=== PATIENT | male | born 1945 | race African-American/Black ===

== ENCOUNTER 2024-09-29 03:43 | Emergency (ER) | payer MEDICARE, OTHER, SELFPAY ==
[2024-09-29 03:47] VITALS: BP 132/93; PULSE 78; RESP 18; TEMP 36.3; O2SAT 97
--- NOTE | 2024-09-29 04:09 | XR_ITS ---
Examination: CT abdomen and pelvis without contrast. Coronal 3-D reconstructions. Sagittal 2-D reconstructions. Date and time of exam:September 29, 2024 at 0425 hours INDICATIONS: Right flank pain hematuria since yesterday CTDI: vol (mGy): 7.40 DLP: (mGycm): 456 Technique: Axial images of the abdomen have been obtained, 3 mm slice thickness Intravenous contrast material has not been administered. Low dose protocols were performed. One or more of the following dose reduction techniques were used; automated exposure control, adjustment of the mA and/or KV according to patient size, use of iterative reconstruction technique. Findings: Trace pericardial effusion No focal liver or splenic lesions No gallstones No pancreatic mass Mild right hydronephrosis, wall thickening of the right ureter, no ureteral calculi, normal appendix Mild urinary bladder wall thickening No obstruction IMPRESSION: Findings most consistent with right urinary tract infection and cystitis
--- NOTE | 2024-09-29 04:10 | PD.EDRME ---
Rapid Medical Screening Exam RME Arrival date/time: 09/29/24 03:43 Chief Complaint: Abdominal Pain Time Seen by Provider: 09/29/24 03:46 Vital signs: Vital Signs Temperature 97.4 F 09/29/24 03:47 Pulse Rate 78 09/29/24 03:47 Respiratory Rate 18 09/29/24 03:47 Blood Pressure 132/93 H 09/29/24 03:47 Pulse Oximetry (%) 97 09/29/24 03:47 Oxygen Delivery Method Room Air 09/29/24 03:47 RME Narrative: Right flank pain, hematuria, nausea since yesterday.
[2024-09-29 04:36] VITALS: BMI 24.8
[2024-09-29] MEDS: SODIUM CHLORIDE 0.9% 1000 ML 1,000 ML 999 ML IV (04:53)
[2024-09-29] MEDS: KETOROLAC INJ 30 MG/ML VIAL IVP (04:53)
[2024-09-29] MEDS: ONDANSETRON INJ 2 MG/ML INJ 2 ML 4 MG IV (04:53)
[2024-09-29 05:09] LABS: Collection Type, Urine Clean Catch; Squamous Epithelial Cell,Urine 0 /hpf (0-5)
[2024-09-29 05:16] LABS: Basophils % (Auto) 0 % (0-2.5); Eosinophils # (Auto) 0.1 Thou/mm3 (0.0-0.5); Eosinophils % (Auto) 1 % (0-10); Hematocrit 35.6 % (41.0-53.0); Hemoglobin 11.4 g/dL (13.5-16.0); Immature Granulocytes % (Auto) 1 % (0-0); Immature Granulocytes Auto 0.03 Thou/mm3 (0.00-0.00); Lymphocytes # (Auto) 0.9 Thou/mm3 (1.0-4.8); Lymphocytes % (Auto) 17 % (10-50); Mean Corpuscular Hemoglobin 30.2 pg (25.0-35.0); Mean Corpuscular Volume 94 fL (80-100); Monocytes # (Auto) 0.5 Thou/mm3 (0.0-0.8); Monocytes % (Auto) 8 % (0-12); Neutrophils # (Auto) 4.1 Thou/mm3 (1.8-7.7); Neutrophils % (Auto) 73 % (37-80); Nucleated Red Blood Cell % 0 /100 WBC (0); Platelet Count 199 Thou/mm3 (140-440); RDW Standard Deviation 44.5 fL (35.1-43.9); Red Blood Count 3.78 Miln/mm3 (4.50-5.90); White Blood Count 5.6 Thou/mm3 (3.8-10.6)
[2024-09-29 05:25] LABS: Bilirubin,Urine Negative (Negative); Blood,Urine 3+ (Negative); Color,Urine Red (Lt Yel-Yel); Glucose, Urine Negative (Negative); Ketones,Urine Negative (Negative); Leukocyte Esterase,Urine Positive (Negative); Nitrite,Urine Negative (Negative); PH,Urine 6.5 (5.0-7.0); Protein,Urine 2+ (Neg - Trace); RBC,Urine 27325 /hpf (0-3); Specific Gravity,Urine 1.015 (1.001-1.035); Urobilinogen,Urine Negative mg/dL (0.0-1.0); WBC,Urine 24 /hpf (0-5)
[2024-09-29 05:26] LABS: Clarity,Urine Turbid (Clear/Hazy)
[2024-09-29 05:35] LABS: Alanine Aminotransferase < 7 U/L (10-49); Albumin, Serum 4.2 gm/dL (3.4-4.8); Albumin/Globulin Ratio 1.4 (1.2-2.2); Alkaline Phosphatase 61 U/L (46-116); Anion Gap 6 (7-16); Aspartate Amino Transferase 15 U/L (0-34); BUN/Creatinine Ratio 17 Ratio (12-20); Bilirubin,Total 0.5 mg/dL (0.3-1.2); Blood Urea Nitrogen 20 mg/dL (9-23); Calcium 9.1 mg/dL (8.3-10.6); Calcium (Corrected) 9.1 mg/dL (8.5-10.1); Carbon Dioxide 25.6 mMol/L (20.0-31.0); Chloride 106 mMol/L (98-107); Creatinine (Component) 1.2 mg/dL (0.6-1.3); Estimated Creatinine Clearance 54.9 mL/min (>60); Globulin 2.9 gm/dL (2.3-3.5); Glucose 95 mg/dL (74-106); Lipase 41 U/L (12-53); Osmolality,Calculated 278 (275-295); Potassium 3.4 mMol/L (3.4-5.1); Sodium 138 mMol/L (136-145); Total Protein 7.1 gm/dL (5.7-8.2); eGFR > 60 See Note
--- NOTE | 2024-09-29 05:43 | PRELIM_ITS ---
CT scan of the abdomen and pelvis without intravenous contrast (axial sections with sagittal and coronal reformats) September 29, 2024 at 0425 hours Clinical History: Right flank pain. Comparison: No prior study is available for comparison. Findings: Bilateral pulmonary fibrosis and bronchiectasis liver, gallbladder , spleen, adrenal glands, pancreas unremarkable. Mild right hydroureteronephrosis without visible ureteral calculus. The urinary bladder is decompressed, limiting evaluation. Normal left kidney. No renal calculi bilaterally. The appendix is normal, best seen on image 138. No free intraperitoneal air or fluid. Bowel caliber is normal. The abdominal wall is unremarkable. No acute osseous process. Impression: Mild right hydroureteronephrosis without visible calculus. Consider recently passed calculus or upper urinary tract section. Possible urinary bladder wall thickening may represent cystitis versus chronic outlet obstruction. Pulmonary fibrosis and bronchiectasis. Report Electronically Signed By: Erich Gutiérrez 09/29/2024 5:42:43 AM [EST]
[2024-09-29 06:03] VITALS: BP 135/87; PULSE 69; RESP 15; TEMP 36.7; O2SAT 94
--- NOTE | 2024-09-29 06:23 | PD.EDABDPN ---
ED Abdominal Pain RME/HPI General Chief Complaint: Abdominal Pain Stated complaint: RIGHT FLANK PAIN, URINATING BLOOD Time seen by provider: 09/29/24 03:46 Arrival date/time: 09/29/24 03:43 RME / HPI RME / HPI narrative: Right flank pain, hematuria, nausea since yesterday. DR. QUINTERO MAIN ED EVALUATION: 79 year old male presents to the Emergency Department accompanied by his with complaint of right-sided abdominal pain since 2 AM this morning, patient states he was awaked from sleep by the pain. He states that his pain was initially 9/10 and now 5/10. Associated symptoms include hematuria. Denies nausea, vomiting, diarrhea, cough, runny nose, fall, injury, loss of consciousness, or other symptoms at this time. Denies history of kidney stones. Former smoker. PCP is at the [facility] clinic. Related Data Home Medications ?Medication ?Instructions ?Recorded ?Confirmed bupropion HCl 150 mg 24 hr tablet, 300 mg PO QDAY ##0 05/30/17 10/20/17 extended release (Wellbutrin XL) fluoxetine 20 mg capsule (Prozac) 40 mg PO QAM #0 caps 05/30/17 10/20/17 olanzapine 20 mg tablet (Zyprexa) 15 mg PO HS #0 tabs 05/30/17 10/20/17 prazosin 5 mg capsule 5 mg PO HS 10/20/17 10/20/17 Allergies Allergy/AdvReac Type Severity Reaction Status Date / Time NKA* Allergy Uncoded 04/05/17 06:13 Review of Systems Review of Systems Systems Reviewed: All systems reviewed, normal except as documented Narrative Review of Systems: Constitutional: DENIES: fevers; Eyes: DENIES: loss of vision; Head/Ear/Nose: DENIES: loss of hearing. Throat: DENIES: dysphagia. Cardiovascular: DENIES: chest pain, dyspnea, or syncope. Respiratory: DENIES: shortness of breath; Gastrointestinal: DENIES: rectal bleeding or melena. Genitourinary: POSITIVES: + right-sided abdominal pain, hematuria Musculoskeletal: DENIES: arthralgia (pain in a joint); Skin: DENIES: rash; Neurological: DENIES: loss of function or movement; Psychiatric: DENIES: recent major life stressor, emotional problem, illicit drug use or abuse; Endocrinology: DENIES: weight change,; Hematologic/Lymphatic: DENIES: abnormal bruising. Allergic/Immunologic: DENIES: urticaria (hives). Past Medical History Past Medical History RESPIRATORY: Positive Pneumonia GASTROINTESTINAL: Positive Hepatitis GENITOURINARY: Positive Benign Prostatic Hyperplasia PSYCHO/SOCIAL: Positive Anxiety and Post Traumatic Stress Disorder Social History SMOKING STATUS: Former smoker SUBSTANCE USE: does not use ALCOHOL: Never ED Exam Narrative Physical exam: Physical Exam: General: The vital signs were reviewed. The patient is non-toxic, in no apparent distress and appears healthy with a patent airway, no respiratory distress and has no apparent circulatory problems. Head & Scalp: Normocephalic, atraumatic. Face: Appears normal and is without lesions, deformity. Ears: Left external pinna appears normal. Right external pinna appears normal. Eyes: The sclera is anicteric. No obvious photophobia. The Left and Right Orbit/Lid/Conjunctiva appears normal without swelling, discoloration or injection. Nose: The nose is without deformity, discharge or tenderness; Throat: Appears normal. The mucous membranes are pink and moist without exudates, redness or mass seen. The tongue appears normal. Neck: The neck is supple and no apparent mass or adenopathy. Chest: The chest wall is normal in size and symmetry and has no chest wall tenderness or crepitus. The patient displays normal ventilator effort without retractions, accessory muscle use and has adequate air movement bilaterally with no wheezes and no rales. Cardiovascular: Regular rate and rhythm; No murmurs, rubs, or gallops; Gastrointestinal: The abdomen appears normal. No obvious hernias or mass. The abdomen is soft and benign, non-distended, with no pain, no guarding and no rebound tenderness. Bowel sounds are present and normal sounding. No CVA tenderness. Genitourinary: Nontender Back/Spine: Normal inspection Extremities/Musculoskeletal/lymphatic: The bilateral upper and lower extremities are warm. There is no evidence of arterial insufficiency. There is no evidence of venous insufficiency/edema. The patient spontaneously moves bilateral upper and lower extremities with no pain and no limitation of movement. There is no apparent, injury or trauma. Skin: The skin is warm, dry and intact. No rashes. No petechia. No purpura. No abnormal bruising. The color is appropriate with no cyanosis. Mental status/Psychiatric: Mental status is appropriate for age. The patient has no apparent delusions, visual hallucinations, no apparent audible hallucinations. The patient has no apparent suicidal thoughts/ideation and no apparent homicidal thoughts/ideation. Neurological: The patient is awake, alert, interactive, cordial, cooperative and is oriented to name and situation. The patient follows commands and answers historical question with no impairment. There is no visual disturbance apparent. The pupils are equal and reactive bilaterally with normal eye movements and no diplopia The bilateral upper and lower extremities have normal strength, normal range of motion and normal functioning. The gait, station and balance appear to be baseline with no acute change walks with a walker Course Quality Measures none Orders Category Date Time Status CT abdomen pelvis wo con Stat Exams 09/29/24 04:09 Completed CBC Stat Lab 09/29/24 04:45 Completed CMP [Comprehensive Metabolic Panel] Stat Lab 09/29/24 04:45 Completed Lipase Stat Lab 09/29/24 04:45 Completed UA [Urinalysis] Stat Lab 09/29/24 04:23 Completed Ketorolac Inj [Toradol Inj] Med 09/29/24 04:09 Discontinued 30 mg IVP X1 ONE Morphine Inj Med 09/29/24 07:31 Discontinued 4 mg IM X1 ONE Ondansetron Inj [Zofran Inj] Med 09/29/24 04:09 Discontinued 4 mg IV X1 ONE Sodium Chloride 0.9% 1000 ml [Ns] 1,000 ml Med 09/29/24 04:10 Discontinued IV 999 mls/hr Vital Signs Vital signs: Vital Signs Temperature 97.4 F 09/29/24 03:47 Pulse Rate 78 09/29/24 03:47 Respiratory Rate 18 09/29/24 03:47 Blood Pressure 132/93 H 09/29/24 03:47 Pulse Oximetry (%) 97 09/29/24 03:47 Oxygen Delivery Method Room Air 09/29/24 03:47 Abdominal Pain MDM MDM Narrative MDM Narrative:: I, Dina Fairchild, am scribing for and in the presence of Dr. Quintero. Patient presents with acute onset of right flank pain at 0200 hrs. that got worse and came in for evaluation. He has never had pain like this never had a kidney stone before. Medical workup revealed white count of 5.16 with 11.4 electrolytes within normal limits BUN 20 creatinine 1.2. Bilirubin transaminase within normal limits. Lipase was negative. Urinalysis reveals 2+ protein 3+ blood with 27,000+ red blood cells and 24 white cells consistent with hematuria. Note the patient is not had any hematuria noted before. CT of the abdomen was done which reveals some minimal right hydro with no stone seen. There are some thickening of the bladder wall with no discrete mass seen. Clinically the patient is much improved he is comfortable at 0700 hrs. he got up and walked his vital signs are within normal limits his O2 sats are in the low 90s but this is probably baseline as he has some bronchiectasis on his CT and he is an ex-smoker. Patient has no shortness of breath or complaints of breathing problems today. [facility] to follow-up on the hematuria see the urologist get referred. Will give him a strainer and to collect a stone he knows to return if getting worse in any way. Patient data External records reviewed:: [facility] previous records (Reviewed last ED visit dated 10/20/17, discharged with the following: Head injury) Clinical information provided by:: patient Social determinants that could affect healthcare access:: other (specify) (former smoker) Patient has the following chronic illnesses:: No history of kidney stones in the past. No known PMHx, no daily medications, or known allergies. How is presenting disease/condition affected by chronic disease/condition?: no chronic disease Evaluation data The following diagnostics were reviewed and interpreted by me:: lab results and radiology exam(s) Lab and/or radiology exams considered but not ordered:: none Interpretation Summary: [facility] [address] [place] [address] [employer] Preliminary Report Draft Patient: KAREN GARCÍA. Record#: [id number] Birthdate: 1945 Age/Sex: 79 / M Location: [facility] Attending Dr: Ordering Physician: Date of Service: Procedure(s): Accession Number(s): cc: ~ CT scan of the abdomen and pelvis without intravenous contrast (axial sections with sagittal and coronal reformats) September 29, 2024 at 0425 hours Clinical History: Right flank pain. Comparison: No prior study is available for comparison. Findings: Bilateral pulmonary fibrosis and bronchiectasis liver, gallbladder , spleen, adrenal glands, pancreas unremarkable. Mild right hydroureteronephrosis without visible ureteral calculus. The urinary bladder is decompressed, limiting evaluation. Normal left kidney. No renal calculi bilaterally. The appendix is normal, best seen on image 138. No free intraperitoneal air or fluid. Bowel caliber is normal. The abdominal wall is unremarkable. No acute osseous process. Impression: Mild right hydroureteronephrosis without visible calculus. Consider recently passed calculus or upper urinary tract section. Possible urinary bladder wall thickening may represent cystitis versus chronic outlet obstruction. Pulmonary fibrosis and bronchiectasis. Report Electronically Signed By: Erich Gutiérrez 09/29/2024 5:42:43 AM [EST] Dictated By: Signed By: DD/ 0432 TD/TT: 09/29/24 0542 [employer] Coordinator: Medications / Prescriptions Medications or Prescriptions considered but not ordered:: none Medication administrations:: Medication Administration History Discontinued Medications Sodium Chloride (Ns) 1,000 mls @ 999 mls/hr IV .Q1H1M ONE Stop: 09/29/24 05:10 Last Infusion: 09/29/24 05:54 Dose: Infused Documented By: Admin: 09/29/24 04:53 Dose: 999 mls/hr Documented By: EF Ketorolac Tromethamine (Ketorolac Inj 30 Mg/Ml Vial) 30 mg IVP X1 ONE Stop: 09/29/24 04:10 Last Admin: 09/29/24 04:53 Dose: 30 mg Documented By: EF Morphine Sulfate (Morphine Sulf Inj 10 Mg/Ml Vial) 4 mg IM X1 ONE Stop: 09/29/24 07:32 Last Admin: 09/29/24 07:38 Dose: 4 mg Documented By: RD Ondansetron HCl (Ondansetron Inj 2 Mg/Ml Inj 2 Ml) 4 mg IV X1 ONE; Protocol Stop: 09/29/24 04:10 Last Admin: 09/29/24 04:53 Dose: 4 mg Documented By: EF see above Consultations Consultation(s) initiated? (list below): No Diagnosis Differential diagnosis abdominal pain: abdominal pain and other (hematuria, kidney stone) Most likely diagnosis given after review of the tests above:: Acute right flank pain Hematuria Bladder wall thickening Bronchiectasis Admission Indicated Admission indicated?: not indicated Admission Request Was there a request for admission?: No Disposition Plan Disposition Plan: Discharge Discharge Attestation Discharge Attestation: The patient and all family members were given an opportunity to ask questions and understood the discharge instructions. Discharge instructions specifically effects, indications for sooner follow up or return to the emergency department, and the expected course of current diagnosis. Patient condition: Stable Discharge Plan Plan Patient Disposition: HOME (Self Care) Patient condition on transfer: Stable Prescriptions/Referrals Prescriptions/Med Rec: No Action fluoxetine [Prozac] 20 MG capsule 40 mg PO QAM Qty: 0 olanzapine [Zyprexa] 20 MG tablet 15 mg PO HS Qty: 0 bupropion HCl [Wellbutrin XL] 150 MG tablet extended release 24 hr 300 mg PO QDAY Qty: 0 prazosin 5 mg Capsule 5 mg PO HS Referrals: No Primary/Family,Physician [Primary Care Provider] - 10/01/24 (In 2 days) Problem List Clinical Impression: Acute right flank pain, Hematuria, Bladder wall thickening, Bronchiectasis Patient/Caregiver Discharge Instructions Education Materials: ED Hematuria Additional Instructions: Today had acute onset of right flank pain and hematuria which is blood in your urine presumably you have a kidney stone although this was not seen on the CAT scan. Please strain your urine as we discussed. [facility] and get referred to urologist for follow-up evaluation. Return if you are getting worse. Also your CAT scan revealed bronchiectasis which is chronic lung tissue changes. And your bladder wall is thickened on the CAT scan which may require further evaluation with a urologist. Take your labs and CT report to your doctors for follow-up evaluation. Print Language: Italian Stand Alone Forms: Sarai Award Info., Patient Portal Info Letter
[2024-09-29] MEDS: MORPHINE SULF INJ 10 MG/ML VIAL 4 MG IM (07:38)
== END 2024-09-29 08:13 | disposition home or self-care (01) ==
PROVIDERS: Physician Assistant; Emergency Provider Emergency Medicine
DX: R10.9 Unspecified abdominal pain (principal); J47.9 Bronchiectasis, uncomplicated; R31.9 Hematuria, unspecified; Z87.891 Personal history of nicotine dependence
CPT/HCPCS: 36415; 74176; 80053; 81001; 83690; 85025; 96361; 96372; 96374; 96375; 99284; J1885; J2270; J2405; J7030

== ENCOUNTER 2025-01-28 11:00 | Emergency (ER) | payer OTHER, SELFPAY ==
--- NOTE | 2025-01-28 11:07 | EKG_ITS ---
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
--- NOTE | 2025-01-28 11:20 | XR_ITS ---
Examination: CT brain head without contrast. 2-D sagittal coronal reconstructions Date and time of exam:January 28, 2025, 1308 hours INDICATIONS: Unsteady gait generalized head pain beginning today CTDI: vol (mGy):49.5 DLP: (mGycm):1023 Technique: Multiple CT axial sections of the brain have been obtained, 5 mm slice thickness. Contrast has not been administered. 2-D sagittal, coronal reconstructions have been obtained Low dose protocols were performed. One or more of the following dose reduction techniques were used; automated exposure control, adjustment of the mA and/or KV according to patient size, use of iterative reconstruction technique. Findings: No significant ventricular enlargement. Intra-axial or extra-axial hemorrhage density is not seen. No mass effect or midline shift Basal cisterns are not remarkable. Fourth ventricle is midline. Cranial vault intact. Chronic maxillary sinusitis Impression: Negative for acute hemorrhage, mass effect or midline shift
[2025-01-28 11:21] VITALS: BP 112/77; PULSE 72; RESP 17; TEMP 37; O2SAT 98
--- NOTE | 2025-01-28 11:21 | PD.EDRME ---
Rapid Medical Screening Exam RME Arrival date/time: 01/28/25 11:00 79-year-old male presents to the Emergency Department today stating has been feeling off balance for the last 4 days Chief Complaint: Weakness
[2025-01-28 12:09] LABS: Basophils # (Auto) 0.0 Thou/mm3 (0.0-0.2); Basophils % (Auto) 1 % (0-2.5); Eosinophils # (Auto) 0.1 Thou/mm3 (0.0-0.5); Eosinophils % (Auto) 2 % (0-10); Hematocrit 36.2 % (41.0-53.0); Hemoglobin 11.5 g/dL (13.5-16.0); Immature Granulocytes Auto 0.01 Thou/mm3 (0.00-0.00); Lymphocytes # (Auto) 1.3 Thou/mm3 (1.0-4.8); Lymphocytes % (Auto) 34 % (10-50); Mean Corpuscular HGB Conc 31.8 g/dl (31.0-37.0); Mean Corpuscular Hemoglobin 29.4 pg (25.0-35.0); Mean Corpuscular Volume 93 fL (80-100); Monocytes # (Auto) 0.2 Thou/mm3 (0.0-0.8); Monocytes % (Auto) 6 % (0-12); Neutrophils # (Auto) 2.2 Thou/mm3 (1.8-7.7); Neutrophils % (Auto) 57 % (37-80); Nucleated Red Blood Cell # 0.00 Thou/mm3 (0.00-0.00); Nucleated Red Blood Cell % 0 /100 WBC (0); Platelet Count 165 Thou/mm3 (140-440); RDW Standard Deviation 46.4 fL (35.1-43.9); Red Blood Count 3.91 Miln/mm3 (4.50-5.90); White Blood Count 3.8 Thou/mm3 (3.8-10.6)
[2025-01-28 12:17] LABS: INR 1.2 (0.9-1.3); Partial Thromboplastin Time 27.2 Seconds (22.0-36.0); Prothrombin Time 12.5 Seconds (9.0-12.2)
[2025-01-28 12:18] LABS: B-Type Natriuretic Peptide 27 pg/mL (0-100)
[2025-01-28 12:40] LABS: Alanine Aminotransferase < 7 U/L (10-49); Albumin, Serum 3.9 gm/dL (3.4-4.8); Albumin/Globulin Ratio 1.4 (1.2-2.2); Alkaline Phosphatase 52 U/L (46-116); Anion Gap 10 (7-16); Aspartate Amino Transferase 18 U/L (0-34); BUN/Creatinine Ratio 13 Ratio (12-20); Bilirubin,Total 0.5 mg/dL (0.3-1.2); Blood Urea Nitrogen 13 mg/dL (9-23); Calcium 9.6 mg/dL (8.3-10.6); Calcium (Corrected) 9.7 mg/dL (8.5-10.1); Carbon Dioxide 23.0 mMol/L (20.0-31.0); Chloride 109 mMol/L (98-107); Creatinine (Component) 1.0 mg/dL (0.6-1.3); Globulin 2.8 gm/dL (2.3-3.5); Glucose 97 mg/dL (74-106); Magnesium 1.9 mg/dL (1.6-2.6); Osmolality,Calculated 283 (275-295); Potassium 4.0 mMol/L (3.4-5.1); Sodium 142 mMol/L (136-145); Total Protein 6.7 gm/dL (5.7-8.2); Troponin I < 0.002 ng/mL (0.0-0.045); eGFR > 60 See Note
[2025-01-28 13:14] LABS: Collection Type, Urine Clean Catch
[2025-01-28 13:27] LABS: Bilirubin,Urine Negative (Negative); Blood,Urine 2+ (Negative); Color,Urine Yellow (Lt Yel-Yel); Culture Indicated,Urine Not Indicated; Glucose, Urine Negative (Negative); Hyaline Casts,Urine < 1 /hpf (0-1); Ketones,Urine Negative (Negative); Leukocyte Esterase,Urine Negative (Negative); Nitrite,Urine Negative (Negative); PH,Urine 6.0 (5.0-7.0); Protein,Urine 1+ (Neg - Trace); RBC,Urine 59 /hpf (0-3); Specific Gravity,Urine 1.026 (1.001-1.035); Squamous Epithelial Cell,Urine 2 /hpf (0-5); Urobilinogen,Urine Negative mg/dL (0.0-1.0); WBC,Urine 9 /hpf (0-5)
[2025-01-28 13:49] LABS: Clarity,Urine Hazy (Clear/Hazy)
[2025-01-28 16:14] VITALS: BP 157/91; PULSE 60; RESP 14; TEMP 36.9; O2SAT 96
--- NOTE | 2025-01-28 16:33 | PD.EDWEAK ---
ED Weakness RME/HPI General Chief complaint: Weakness Stated complaint: Falling, weak and tired Time Seen by Provider: 01/28/25 16:17 Arrival date/time: 01/28/25 11:00 RME / HPI RME / HPI Narrative: 79-year-old male presents to the Emergency Department today stating has been feeling off balance for the last several weeks, getting worse for the last few days. Patient used to walk 30 minutes in the morning and 30 minutes in the evening however cannot do it anymore without help. Denies any headache denies any upper or lower extremity focal neurologic deficit. Denies any chest pain abdominal pain fever vomiting or other complaints. Patient lives with family. Related Data Home Medications ?Medication ?Instructions ?Recorded ?Confirmed bupropion HCl 150 mg 24 hr tablet, 300 mg PO QDAY ##0 05/30/17 10/20/17 extended release (Wellbutrin XL) fluoxetine 20 mg capsule (Prozac) 40 mg PO QAM #0 caps 05/30/17 10/20/17 olanzapine 20 mg tablet (Zyprexa) 15 mg PO HS #0 tabs 05/30/17 10/20/17 prazosin 5 mg capsule 5 mg PO HS 10/20/17 10/20/17 Allergies Allergy/AdvReac Type Severity Reaction Status Date / Time NKA* Allergy Uncoded 01/28/25 11:05 Review of Systems Review of Systems Narrative Review of Systems: Review of system reviewed and within normal limits except mentioned in HPI ED Exam Narrative Physical exam: VITAL SIGNS: Reviewed. GENERAL APPEARANCE: Alert and interactive, follows commands, no acute distress, HEAD AND FACE: Non-traumatic. ENT: PERRL, pink conjunctivitis, eyelid no trauma, Mucous membrane moist. NECK: Supple, nontender, no nuchal rigidity. CHEST: No tenderness, no crepitus, no paradoxical movement, no retractions. LUNGS: Clear, well ventilated, symmetric, no rales, no wheezing, no ronchi, no stridor, good breath sounds bilaterally. HEART: Regular rate, regular rhythm, no murmur, no gallops. ABDOMEN: Soft, positive bowel sounds, nondistended, no guarding, nontender, no rebound, no masses, RECTAL: Deferred. GENITAL: Deferred. NEUROLOGICAL: Gross motor function intact sensory function intact, Appropriate for age. MUSCULOSKELETAL: low back nontender, full range of motion. EXTREMITIES: Nontender, full range of motion. SKIN: Color pink, dry, no rash, no lacerations, no abrasions, no contusions. LYMPHATICS: Deferred. Course Quality Measures none Orders Category Date Time Status EKG (ED ONLY) *Do not use* NOW Care 01/28/25 11:[address] head/brain wo con Stat Exams 01/28/25 11:20 Completed EKG (ED Only) Stat Exams 01/28/25 11:07 Draft B-Type Natriuretic Peptide Stat Lab 01/28/25 11:52 Completed CBC Stat Lab 01/28/25 11:52 Completed Comprehensive Metabolic Panel Stat Lab 01/28/25 11:52 Completed Magnesium Stat Lab 01/28/25 11:52 Completed Partial Thromboplastin Time Stat Lab 01/28/25 11:52 Completed Prothrombin Time with INR Stat Lab 01/28/25 11:52 Completed Troponin I Stat Lab 01/28/25 11:52 Completed Urinalysis, C/S if Indicated Stat Lab 01/28/25 13:06 Completed Vital Signs Vital signs: Vital Signs Temperature 98.6 F 01/28/25 11:21 Pulse Rate 72 01/28/25 11:21 Respiratory Rate 17 01/28/25 11:21 Blood Pressure 112/77 01/28/25 11:21 Pulse Oximetry (%) 98 01/28/25 11:21 Oxygen Delivery Method Room Air 01/28/25 11:21 Weakness MDM Narrative MDM Narrative:: 79-year-old male presents to the Emergency Department today stating has been feeling off balance for the last several weeks, getting worse for the last few days. Patient used to walk 30 minutes in the morning and 30 minutes in the evening however cannot do it anymore without help. Denies any headache denies any upper or lower extremity focal neurologic deficit. Denies any chest pain abdominal pain fever vomiting or other complaints. Patient lives with family. EKG showed sinus rhythm, ventricular to 72 bpm, no ST segment elevation or depression. Patient's workup today all came back unremarkable urinalysis no UTI CT scan of the head also came back normal. Results discussed with the patient and family. I suggested to the liter of IV fluids however family refused Family told me that they will [facility], and asked for referral to physical therapy as instructed. Stable for discharge home. Patient data External records reviewed:: None Clinical information provided by:: patient Social determinants that could affect healthcare access:: none Patient has the following chronic illnesses:: None How is presenting disease/condition affected by chronic disease/condition?: no chronic disease Evaluation data The following diagnostics were reviewed and interpreted by me:: lab results, radiology exam(s) and EKG tracing(s) Lab and/or radiology exams considered but not ordered:: None Interpretation Summary: See results MDM Medications / Prescriptions Medications or Prescriptions considered but not ordered:: None Medication administrations:: None Consultations Consultation(s) initiated? (list below): No Diagnosis Weakness Differential Diagnosis: dehydration Most likely diagnosis given after review of the tests above:: Generalized weakness Admission Indicated Admission indicated?: not indicated Admission Request Was there a request for admission?: No Disposition Plan Disposition Plan: Discharge Discharge Attestation Discharge Attestation: The patient and all family members were given an opportunity to ask questions and understood the discharge instructions. Discharge instructions specifically effects, indications for sooner follow up or return to the emergency department, and the expected course of current diagnosis. Patient condition: Stable Discharge Plan Plan Patient Disposition: HOME (Self Care) Discharge Disposition comment: Stable Prescriptions/Referrals Prescriptions/Med Rec: No Action fluoxetine [Prozac] 20 MG capsule 40 mg PO QAM Qty: 0 olanzapine [Zyprexa] 20 MG tablet 15 mg PO HS Qty: 0 bupropion HCl [Wellbutrin XL] 150 MG tablet extended release 24 hr 300 mg PO QDAY Qty: 0 prazosin 5 mg Capsule 5 mg PO HS Referrals: No Primary/Family,Physician [Primary Care Provider] - In 1 week Problem List Clinical Impression: Generalized weakness Patient/Caregiver Discharge Instructions Discharge Activity: activity as tolerated Education Materials: ED Weakness (Uncertain Cause) Additional Instructions: Thank you for the opportunity for serving you today. You are stable for discharged . You are advised to: Follow-up with your PCP in 1 to 2 days and ask your PCP to refer you to physical therapy Return to ED for worsening of symptoms Increase oral fluids Print Language: Gabonese Stand Alone Forms: Sarai Award Info., Patient Portal Info Letter PA/SKIN CARE SPECIALIST Supervising Physician YENIFER/ANTHONY Supervising Physician: MD Niles
== END 2025-01-28 16:57 | disposition home or self-care (01) ==
PROVIDERS: Nurse Practitioner Primary Care; Emergency Provider Family Medicine
DX: R53.1 Weakness (principal); R26.81 Unsteadiness on feet
CPT/HCPCS: 36415; 70450; 80053; 81001; 83735; 83880; 84484; 85025; 85610; 85730; 93005; 99283